=== PATIENT | female | born 1960 ===

== ENCOUNTER 2017-06-18 10:25 | Day surgery (SDC) | payer OTHER ==
[2017-06-18] MEDS ORDERED: LR 1,000 ML IV ONE (10:34)
[2017-06-18] MEDS ORDERED: LIDOCAINE 1% 2 ML INJ ID PRN (10:34)
[2017-06-18] MEDS ORDERED: LR 500 ML IV PRN (11:54)
[2017-06-18] MEDS ORDERED: DEXAMETHASONE 4 MG/ML VIAL IVP PRN (11:54)
[2017-06-18] MEDS ORDERED: ALBUTEROL 3 ML DEYVIAL IH PRN (11:54)
[2017-06-18] MEDS ORDERED: ONDANSETRON 4 MG/2 ML VIAL IVP PRN (11:54)
[2017-06-18] MEDS ORDERED: NS 500 ML IV PRN (11:54)
[2017-06-18] MEDS ORDERED: fentaNYL 100 MCG/2 ML INJ IVP PRN (11:54)
[2017-06-18] MEDS ORDERED: NALOXONE HCL 0.4 MG/ML INJ IVP PRN (11:54)
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
[2017-06-18] MEDS ORDERED: PROPOFOL/EMULSION 500 MG/50 ML BOTTLE IV ONE (11:57)
--- NOTE | 2017-06-18 11:57 | PDGENHP ---
History & Physical Chief Complaint: phx colon polyps History of Present Illness: IBS diarrhea. no hematochezia. no fhx colon polyps no cc Pertinent Past, Social, Family History: no tobacco quit 2 years. alcohol occ 1- 2 /year Relevant Physical Exam: A+Ox3. CTA. S1S2,. +BS soft nt Cardiorespiratory Assessment: class 3
[2017-06-18] MEDS ORDERED: PROPOFOL 200 MG/20 ML VIAL ONE ×2 (12:24→12:40)
[2017-06-18] MEDS ORDERED: PHENYLEPHRINE HCL 100 MCG/ML SYR ONE (12:44)
[2017-06-18 13:26] VITALS: BP 102/78
--- NOTE | 2017-06-18 13:26 | GIREPORT ---
[facility] - Endoscopy Department Patient Name: Vanesa Bueno Procedure Date: 06/18/2017 12:05 PM Patient Type: Outpatient Attending MD/ ER Physician: Lebron Craig Procedure: Colonoscopy Indications: Screening for colorectal malignant neoplasm, questionable history of po lyps 10+ years ago Providers: Larry Arguelles MD Referring MD: Franco Montejo MD Medicines: Total IV Anesthesia (TIVA) = IV general Complications: No immediate complications. Estimated blood loss: Minimal. Description of Procedure: After obtaining informed consent, the scope was passed under direct vis ion. Throughout the procedure, the patient's blood pressure, pulse, and oxyg en saturations were monitored continuously. The Colonoscope with irrigatio n channel was introduced through the anus and advanced to the terminal il eum, with identification of the appendiceal orifice and IC valve. The colono scopy was performed without difficulty. The patient tolerated the procedure w ell. The quality of the bowel preparation was good. Findings: The digital rectal exam was normal. The terminal ileum appeared normal. A 6 mm polyp was found in the proximal transverse colon. The polyp was semi-sessile. The polyp was removed with a cold snare. Resection and retrieval were complete. Estimated blood loss was minimal. Three sessile polyps were found in the mid transverse colon. The polyps were 2 to 3 mm in size. These polyps were removed with a piecemeal technique using a cold biopsy forceps. Resection and retrieval were complete. Estimated blood loss was minimal. A 10 mm polyp was found in the sigmoid colon. The polyp was semi-sessil e. The polyp was removed with a cold snare. Resection and retrieval were complete. Estimated blood loss was minimal. Six polyps were found in the rectum. The polyps were small in size. The se polyps were removed with a piecemeal technique using a cold biopsy forc eps. Resection and retrieval were complete. Estimated blood loss was minimal . The exam was otherwise without abnormality. Estimated Blood Loss: Estimated blood loss was minimal. Post Op Diagnosis: - The examined portion of the ileum was normal. - One 6 mm polyp in the proximal transverse colon, removed with a cold snare. Resected and retrieved. - Three 2 to 3 mm polyps in the mid transverse colon, removed piecemeal using a cold biopsy forceps. Resected and retrieved. - One 10 mm polyp in the sigmoid colon, removed with a cold snare. Rese cted and retrieved. - Six small polyps in the rectum, removed piecemeal using a cold biopsy forceps. Resected and retrieved. - The examination was otherwise normal. Recommendation: - Await pathology results. - My office will call with the pathology result with 5-7 days. If you h ave not heard from my office by 12-14, do not assume the pathology is marguerite l, please call [phone] to get the pathology results. - Repeat colonoscopy in 3 years for surveillance based on pathology res ults. - High fiber diet. - Patient has a contact number available for emergencies. The signs and symptoms of potential delayed complications were discussed with the pat ient. Return to normal activities tomorrow. Written discharge instructions we re provided to the patient. - Continue present medications. - Avoid Aspirin and NSAID's for 7-10 days except as used for cardiac or stroke prevention. - Discharge patient to home (ambulatory). - Return to primary care physician as previously scheduled. - Thank you for allowing me to help in your patient's care. Do not hesi barrett to call with any questions. Attending Participation: I personally performed the entire procedure. Kindra Juarez M.D Larry Arguelles MD 06/18/2017 1:26:14 PM This report has been signed electronicallyMathew MD Kindra Number of Addenda: 0 Note Initiated On: 06/18/2017 12:05 PM Total Procedure Duration Time 0 hours 29 minutes 29 seconds [email or web address]
--- NOTE | 2017-06-18 13:33 | POSTANESTH ---
Post Anesthetic Evaluation Cardiovascular Status: Normal, Stable Respiratory Status: Normal, Stable Level of Consciousness/Mental Status: Can Participate in Eval Pain Control: Adequate, Prn Tx Ordered Nausea/Vomiting Control: Adequate, Prn Tx Ordered Complications Possibly Related to Anesthesia: None Noted
== END 2017-06-18 14:11 | disposition home or self-care (01) ==
LOC: FSGY 10:25
PROVIDERS: ATTEND Internal Medicine Gastroenterology
PROC: 0DBL8ZX Excision of Transverse Colon, Via Natural or Artificial Opening Endoscopic, Diagnostic (ICD-10-PCS; principal; 2017-06-18 12:00)
PROC: 0DBP8ZX Excision of Rectum, Via Natural or Artificial Opening Endoscopic, Diagnostic (ICD-10-PCS; principal; 2017-06-18 12:00)
PROC: 0DBN8ZX Excision of Sigmoid Colon, Via Natural or Artificial Opening Endoscopic, Diagnostic (ICD-10-PCS; principal; 2017-06-18 12:00)
DX: Z12.11 Encounter for screening for malignant neoplasm of colon (principal); D12.3 Benign neoplasm of transverse colon; K63.5 Polyp of colon; K62.1 Rectal polyp; K58.0 Irritable bowel syndrome with diarrhea; I25.10 Atherosclerotic heart disease of native coronary artery without angina pectoris; R55 Syncope and collapse; E03.9 Hypothyroidism, unspecified; J44.9 Chronic obstructive pulmonary disease, unspecified; G90.513 Complex regional pain syndrome I of upper limb, bilateral; K21.9 Gastro-esophageal reflux disease without esophagitis; I10 Essential (primary) hypertension; E78.00 Pure hypercholesterolemia, unspecified; G47.33 Obstructive sleep apnea (adult) (pediatric); E66.9 Obesity, unspecified; Z68.30 Body mass index [BMI] 30.0-30.9, adult; F32.9 Major depressive disorder, single episode, unspecified; F41.9 Anxiety disorder, unspecified; Z87.891 Personal history of nicotine dependence; Z86.010 Personal history of colon polyps; Z82.3 Family history of stroke; Z95.5 Presence of coronary angioplasty implant and graft
CPT/HCPCS: J2370; J2704